=== PATIENT | male | born 1950 | race Asian ===

== ENCOUNTER 2020-10-30 06:08 | Emergency (ER) | payer MEDICARE ==
[~2020-10-30] VITALS: Ht 175.3 cm; Wt 59.0 kg
[2020-10-30 06:12] VITALS: Ht 175.3 cm; Wt 59.0 kg
[2020-10-30 07:25] VITALS: BP 133/52
== END 2020-10-30 07:25 | disposition home or self-care (01) ==
LOC: ED 06:08
DX: Z02.79 Encounter for issue of other medical certificate (principal)